=== PATIENT | male | born 1950 | race Caucasian/White ===

== ENCOUNTER 2020-03-05 13:05 | Inpatient (IN) | payer MEDICARE, SELFPAY ==
[~2020-03-05 13:05] MED LIST: Iopamidol-370 76% 500 ML 1 ML ONE
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
[2020-03-05] MEDS ORDERED: Adacel (T-DAP) 0.5 ML SYRINGE ONE (13:41)
[2020-03-05] MEDS ORDERED: Morphine 4 MG/ML VIAL ONE ×3 (13:41→14:43)
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
[2020-03-05 13:42] LABS: #Basophils 0.1 thou/uL (0.0-0.2); #Eosinphils 0.1 thou/uL (0.0-0.7); #Lymphocytes 1.9 thou/uL (1.20-3.40); #Monocytes 0.8 thou/uL (0.11-0.59); #Neutrophils 9.1 thou/uL (1.40-6.50); %Basophils 0.6 % (0.0-1.0); %Eosinophils 1.1 % (0.0-10.0); %Lymphocytes 15.7 % (21.0-51.0); %Monocytes 6.7 % (0.0-10.0); %Neutrophils 75.9 % (42.0-75.0); Hemoglobin 13.5 g/dL (14.0-18.0); Mean Corpuscular HGB CONC 33.4 g/dL (32.0-36.0); Mean Corpuscular Hemoglobin 31.7 pg (27.0-31.0); Mean Corpuscular Volume 94.9 fL (78.0-98.0); Mean Platelet Volume 7.3 fL (7.4-10.4); Platelet Count 228 thou/uL (130-400); RBC Distribution Width 11.6 % (11.5-14.5); Red Blood Cell (RBC) Count 4.27 mill/uL (4.70-6.10)
[2020-03-05] MEDS ORDERED: Ondansetron PF 4 MG/2 ML Vial ONE (13:42)
[2020-03-05 13:46] LABS: Prothrombin Time 12.8 sec (12.0-14.7)
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
[2020-03-05] MEDS ORDERED: Lidocaine 1% (PF) 30 ML VIAL ONE ×2 (13:54→16:14)
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
[2020-03-05 14:12] LABS: ALT (SGPT) 25 U/L (8-55); AST (SGOT) 41 U/L (5-34); Albumin 3.8 g/dL (3.4-4.8); Alkaline Phosphatase 43 U/L (40-110); Anion Gap 11 mmol/L (10-20); BUN (Urea Nitrogen) 12 mg/dL (8.4-25.7); Bilirubin, Total 0.5 mg/dL (0.2-1.2); Calc. Creatinine Clearance 0 mL/min (70-130); Calcium 8.4 mg/dL (7.8-10.44); Carbon Dioxide 21 mmol/L (23-31); Chloride 111 mmol/L (98-107); Estimated GFR-MDRD 79; Globulin 2.4 g/dL (2.4-3.5); Glucose 114 mg/dL (80-115); Lipase 36 U/L (8-78); Potassium 3.8 mmol/L (3.5-5.1); Protein, Total 6.2 g/dL (5.8-8.1); Sodium 139 mmol/L (136-145)
[2020-03-05] MEDS ORDERED: Dextrose 5% in Water 1,000 ML IV PRN (14:34)
[2020-03-05] MEDS ORDERED: Ondansetron PF 4 MG/2 ML Vial IVP PRN (14:34)
[2020-03-05] MEDS ORDERED: Ondansetron ODT 4 MG TAB PO PRN (14:34)
[2020-03-05] MEDS ORDERED: hydrALAZINE 20 MG/ML VIAL SLOW IVP PRN ×2 (14:34)
[2020-03-05] MEDS ORDERED: Dextrose 50% Abboject 50 ML SYRINGE SLOW IVP PRN (14:34)
[2020-03-05] MEDS ORDERED: HumaLOG 300 UNITS/3 ML VIAL SC PRN (14:34)
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
[2020-03-05] MEDS ORDERED: Rib Fracture Protocol PO SCH ×2 (14:45→15:23)
[2020-03-05] MEDS ORDERED: Ketorolac Tromethamine 30 MG/ML VIAL ONE (14:53)
[2020-03-05 16:43] LABS: Lactic Acid 1.9 mmol/L (0.5-2.2)
[2020-03-05 17:20] VITALS: BMI 24.7
[2020-03-05] MEDS: traMADol HCl 50 MG TAB PO SCH ×2 (17:28→23:28)
[2020-03-05] MEDS: Acetaminophen 500 MG TAB PO SCH ×2 (17:28→23:28)
[2020-03-05] MEDS: Ketorolac Tromethamine 30 MG/ML VIAL IVP SCH (20:47)
[2020-03-05] MEDS: Senokot S 8.6-50 MG TAB PO SCH (20:47)
[2020-03-05] MEDS: Gabapentin 100 MG CAP PO SCH (20:47)
[2020-03-05] MEDS: Tamsulosin HCl 0.4 MG CAP PO SCH (20:47)
[2020-03-05] MEDS: Famotidine/PF 20 mg/2ml Vial SLOW IVP SCH (20:49)
[2020-03-06] MEDS: Ketorolac Tromethamine 30 MG/ML VIAL IVP SCH (02:32)
[2020-03-06] MEDS ORDERED: traMADol HCl 50 MG TAB PO PRN (02:40)
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
[2020-03-06] MEDS: Acetaminophen 500 MG TAB PO SCH ×4 (05:12→23:54)
[2020-03-06] MEDS: Ibuprofen 600 MG TAB PO SCH ×3 (05:13→21:34)
[2020-03-06] MEDS: traMADol HCl 50 MG TAB PO SCH ×4 (05:13→23:54)
[2020-03-06 05:29] LABS: #Basophils 0.1 thou/uL (0.0-0.2); #Lymphocytes 1.5 thou/uL (1.20-3.40); #Monocytes 0.8 thou/uL (0.11-0.59); #Neutrophils 4.5 thou/uL (1.40-6.50); %Basophils 0.8 % (0.0-1.0); %Eosinophils 0.4 % (0.0-10.0); %Lymphocytes 21.8 % (21.0-51.0); %Monocytes 11.4 % (0.0-10.0); %Neutrophils 65.6 % (42.0-75.0); Hemoglobin 10.7 g/dL (14.0-18.0); Mean Corpuscular HGB CONC 33.9 g/dL (32.0-36.0); Mean Corpuscular Hemoglobin 31.8 pg (27.0-31.0); Mean Corpuscular Volume 93.9 fL (78.0-98.0); Mean Platelet Volume 7.6 fL (7.4-10.4); Platelet Count 182 thou/uL (130-400); RBC Distribution Width 11.6 % (11.5-14.5); Red Blood Cell (RBC) Count 3.36 mill/uL (4.70-6.10); White Blood Cell (WBC) Count 6.8 thou/uL (4.8-10.8)
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
[2020-03-06 05:52] LABS: Anion Gap 11 mmol/L (10-20); BUN (Urea Nitrogen) 15 mg/dL (8.4-25.7); Calc. Creatinine Clearance 93 mL/min (70-130); Calcium 8.3 mg/dL (7.8-10.44); Carbon Dioxide 23 mmol/L (23-31); Chloride 106 mmol/L (98-107); Estimated GFR-MDRD 88; Glucose 118 mg/dL (80-115); Magnesium 2.4 mg/dL (1.6-2.6); Potassium 3.8 mmol/L (3.5-5.1); Sodium 136 mmol/L (136-145)
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
[2020-03-06] MEDS: Gabapentin 100 MG CAP PO SCH ×3 (08:07→21:34)
[2020-03-06] MEDS: Polyethylene Glycol 3350 17 GM Packet PO SCH (08:07)
[2020-03-06] MEDS: Famotidine/PF 20 mg/2ml Vial SLOW IVP SCH (08:07)
[2020-03-06] MEDS: Senokot S 8.6-50 MG TAB PO SCH (08:07)
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
[2020-03-06] MEDS: Tamsulosin HCl 0.4 MG CAP PO SCH (21:34)
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
[2020-03-07] MEDS: traMADol HCl 50 MG TAB PO SCH ×4 (05:20→23:24)
[2020-03-07] MEDS: Ibuprofen 600 MG TAB PO SCH ×3 (05:20→23:24)
[2020-03-07] MEDS: Acetaminophen 500 MG TAB PO SCH ×4 (05:20→23:24)
[2020-03-07 05:33] LABS: #Eosinphils 0.1 thou/uL (0.0-0.7); #Lymphocytes 1.4 thou/uL (1.20-3.40); #Monocytes 0.7 thou/uL (0.11-0.59); #Neutrophils 3.5 thou/uL (1.40-6.50); %Basophils 0.4 % (0.0-1.0); %Eosinophils 1.5 % (0.0-10.0); %Lymphocytes 24.6 % (21.0-51.0); %Monocytes 11.6 % (0.0-10.0); %Neutrophils 61.8 % (42.0-75.0); Mean Corpuscular HGB CONC 34.9 g/dL (32.0-36.0); Mean Corpuscular Hemoglobin 32.7 pg (27.0-31.0); Mean Corpuscular Volume 93.8 fL (78.0-98.0); Mean Platelet Volume 7.5 fL (7.4-10.4); Platelet Count 141 thou/uL (130-400); RBC Distribution Width 11.6 % (11.5-14.5); Red Blood Cell (RBC) Count 3.05 mill/uL (4.70-6.10); White Blood Cell (WBC) Count 5.7 thou/uL (4.8-10.8)
[2020-03-07] MEDS: Gabapentin 100 MG CAP PO SCH ×3 (08:29→20:08)
[2020-03-07] MEDS: Enoxaparin Sodium 40 MG/0.4 ML SYRINGE SC SCH (08:29)
[2020-03-07] MEDS: Senokot S 8.6-50 MG TAB PO SCH ×2 (08:29→20:08)
[2020-03-07] MEDS: Polyethylene Glycol 3350 17 GM Packet PO SCH (08:30)
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
[2020-03-07] MEDS: Tamsulosin HCl 0.4 MG CAP PO SCH (20:08)
[2020-03-07] MEDS: Cyclobenzaprine 10 MG TAB PO PRN (20:16)
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
[2020-03-08] MEDS: traMADol HCl 50 MG TAB PO SCH ×4 (05:16→23:42)
[2020-03-08] MEDS: Acetaminophen 500 MG TAB PO SCH ×4 (05:17→23:42)
[2020-03-08] MEDS: Ibuprofen 600 MG TAB PO SCH ×3 (05:17→20:44)
[2020-03-08] MEDS ORDERED: traMADol HCl 50 MG TAB PO PRN (09:00)
[2020-03-08] MEDS: Gabapentin 100 MG CAP PO SCH ×3 (09:35→20:44)
[2020-03-08] MEDS: Senokot S 8.6-50 MG TAB PO SCH ×2 (09:35→20:44)
[2020-03-08] MEDS: Enoxaparin Sodium 40 MG/0.4 ML SYRINGE SC SCH (09:36)
[2020-03-08] MEDS: Polyethylene Glycol 3350 17 GM Packet PO SCH (09:36)
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
[2020-03-08] MEDS: Tamsulosin HCl 0.4 MG CAP PO SCH (20:44)
[2020-03-09] MEDS: Cyclobenzaprine 10 MG TAB PO PRN (03:35)
[2020-03-09] MEDS: Acetaminophen 500 MG TAB PO SCH ×3 (05:38→17:03)
[2020-03-09] MEDS: Ibuprofen 600 MG TAB PO SCH ×3 (05:39→20:32)
[2020-03-09] MEDS: traMADol HCl 50 MG TAB PO SCH ×3 (05:39→17:03)
[2020-03-09] MEDS: Gabapentin 100 MG CAP PO SCH ×3 (08:03→20:32)
[2020-03-09] MEDS: Senokot S 8.6-50 MG TAB PO SCH ×2 (08:03→20:32)
[2020-03-09] MEDS: Enoxaparin Sodium 40 MG/0.4 ML SYRINGE SC SCH (08:04)
[2020-03-09] MEDS: Polyethylene Glycol 3350 17 GM Packet PO SCH (08:04)
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
[2020-03-09] MEDS: Tamsulosin HCl 0.4 MG CAP PO SCH (20:32)
[2020-03-10] MEDS: Acetaminophen 500 MG TAB PO SCH ×4 (00:02→18:04)
[2020-03-10] MEDS: traMADol HCl 50 MG TAB PO SCH ×4 (00:03→18:05)
[2020-03-10] MEDS: Ibuprofen 600 MG TAB PO SCH ×3 (06:13→21:29)
[2020-03-10] MEDS: Senokot S 8.6-50 MG TAB PO SCH ×2 (08:44→20:18)
[2020-03-10] MEDS: Gabapentin 100 MG CAP PO SCH ×3 (08:44→20:17)
[2020-03-10] MEDS: Enoxaparin Sodium 40 MG/0.4 ML SYRINGE SC SCH (08:44)
[2020-03-10] MEDS: Polyethylene Glycol 3350 17 GM Packet PO SCH (08:44)
[2020-03-10] MEDS ORDERED: Bisacodyl 10 MG SUPP PR SCH (13:15)
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
[2020-03-10] MEDS: Tamsulosin HCl 0.4 MG CAP PO SCH (20:17)
[2020-03-11] MEDS: Acetaminophen 500 MG TAB PO SCH ×5 (00:01→23:19)
[2020-03-11] MEDS: traMADol HCl 50 MG TAB PO SCH ×5 (00:02→23:19)
[2020-03-11] MEDS: Ibuprofen 600 MG TAB PO SCH ×3 (05:17→21:00)
[2020-03-11] MEDS: Gabapentin 100 MG CAP PO SCH ×3 (08:15→21:00)
[2020-03-11] MEDS: Senokot S 8.6-50 MG TAB PO SCH ×2 (08:15→21:00)
[2020-03-11] MEDS: Enoxaparin Sodium 40 MG/0.4 ML SYRINGE SC SCH (08:16)
[2020-03-11] MEDS: Polyethylene Glycol 3350 17 GM Packet PO SCH (08:16)
--- NOTE | 2020-03-11 16:08 | ULT ---
LEFT UPPER EXTREMITY VENOUS DOPPLER: Date: 03-11-2020 Provided Clinical History: Left upper extremity swelling. FINDINGS: Grayscale and color doppler sonography with spectral analysis was performed of the left internal jugu lar, subclavian, axillary, cephalic, basilic, radial, ulnar and brachial veins, demonstrating a maria luz l sonographic appearance to each. IMPRESSION: No sonographic evidence for left upper extremity deep venous thrombosis. POS: SHARON
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
[2020-03-11] MEDS: Tamsulosin HCl 0.4 MG CAP PO SCH (21:00)
[2020-03-12] MEDS: traMADol HCl 50 MG TAB PO SCH (05:13)
[2020-03-12] MEDS: Acetaminophen 500 MG TAB PO SCH (05:14)
[2020-03-12] MEDS: Ibuprofen 600 MG TAB PO SCH (05:14)
[2020-03-12 07:47] VITALS: BP 103/68; TEMP 98.3
[2020-03-12] MEDS: Gabapentin 100 MG CAP PO SCH (08:17)
[2020-03-12] MEDS: Senokot S 8.6-50 MG TAB PO SCH (08:17)
[2020-03-12] MEDS: Polyethylene Glycol 3350 17 GM Packet PO SCH (08:17)
[2020-03-12] MEDS: Enoxaparin Sodium 40 MG/0.4 ML SYRINGE SC SCH (08:18)
--- NOTE | 2020-03-20 16:19 | EKG ---
Test Reason : Blood Pressure : / mmHG Vent. Rate : 054 BPM Atrial Rate : 054 BPM P-R Int : 170 ms QRS Dur : 078 ms QT Int : 478 ms P-R-T Axes : 049 012 016 degrees QTc Int : 453 ms Sinus bradycardia Septal infarct , age undetermined Abnormal ECG Confirmed by PENG RIDER, ESTEE Sheppard ([id number]), communications editor ROCIO PEOPLES ([id number]) on 03/20/2020 4:19:05 PM Referred By: Confirmed By:ESTEE KHOURY MD
== END 2020-03-12 10:45 | disposition home or self-care (01) | DRG 206 ==
LOC: ERS 13:05 → SURG A 16:04
PROVIDERS: ADMIT Specialist; ATTEND Specialist
PROC: 3E0234Z Introduction of Serum, Toxoid and Vaccine into Muscle, Percutaneous Approach (ICD-10-PCS; principal; 2020-03-05)
DX: S27.321A Contusion of lung, unilateral, initial encounter (principal); S22.43XA Multiple fractures of ribs, bilateral, initial encounter for closed fracture; S22.20XA Unspecified fracture of sternum, initial encounter for closed fracture; S22.019A Unspecified fracture of first thoracic vertebra, initial encounter for closed fracture; S22.069A Unspecified fracture of T7-T8 vertebra, initial encounter for closed fracture; S22.079A Unspecified fracture of T9-T10 vertebra, initial encounter for closed fracture; S91.311A Laceration without foreign body, right foot, initial encounter; S42.101A Fracture of unspecified part of scapula, right shoulder, initial encounter for closed fracture; N40.0 Benign prostatic hyperplasia without lower urinary tract symptoms; V24.4XXA Motorcycle driver injured in collision with heavy transport vehicle or bus in traffic accident, initial encounter; Y92.410 Unspecified street and highway as the place of occurrence of the external cause; Z79.899 Other long term (current) drug therapy; Z79.82 Long term (current) use of aspirin; Z23 Encounter for immunization
CPT/HCPCS: 36415; 70450; 71045; 71260; 72125; 72170; 74177; 80048; 80053; 83605; 83690; 83735; 84100; 85025; 85610; 86850; 86900; 86901; 90471; 90715; 93005; 94640; 96365; 96375; 96376; G0390; J0690; J1650; J1885; J2001; J2270; J2405; J7620; Q9967; S0028